=== PATIENT | female | born 1960 | race Hispanic/Latino ===

== ENCOUNTER 2018-05-05 06:02 | Inpatient (IN) | payer BC ==
[2018-05-05] MEDS ORDERED: ePHEDrine 50 mg/ml Inj ONE (07:19)
[2018-05-05] MEDS ORDERED: Propofol 10 mg/ml Inj (20 ML) ONE (07:19)
[2018-05-05] MEDS ORDERED: Rocuronium 10 mg/ml (5 ml) ONE (07:19)
[2018-05-05] MEDS ORDERED: Midazolam 2 MG/2 ML VIAL ONE (07:19)
[2018-05-05] MEDS ORDERED: Succinylcholine Chloride 20 mg/ml Syr (5 ml) IV ONE (07:19)
[2018-05-05] MEDS ORDERED: Phenylephrine 10 mg/ml Inj ONE (07:19)
[2018-05-05] MEDS ORDERED: ceFAZolin IV 1 gm in Dextrose 2 GM/100 ML BAG IVPB ONE (07:33)
[2018-05-05] MEDS ORDERED: Bupivacaine-Epi 0.5%-1:200,000 PF Inj ONE (07:33)
[2018-05-05] MEDS ORDERED: Sodium Chloride 0.9% 20 ML IV ONE (07:33)
[2018-05-05] MEDS ORDERED: Morphine 4 MG/ML VIAL ONE (08:36)
[2018-05-05] MEDS ORDERED: Neostigmine Methylsulfate 3mg/3ml Syringe IV ONE (09:28)
[2018-05-05] MEDS ORDERED: HYDROmorphone 0.5 mg/0.5 ml ISec IVP PRN (10:29)
[2018-05-05] MEDS ORDERED: Oxycodone/Acetaminophen 5/325 mg Tab PO PRN ×2 (11:19)
[2018-05-05] MEDS ORDERED: ceFAZolin IV 1 gm in Dextrose 1 GM/50 ML BAG IVPB SCH (11:30)
--- NOTE | 2018-05-05 12:00 | PCM.OP ---
Operative Report - Operative Report Date of Surgery/Procedure: 05/05/18 Time of Surgery/Procedure: 11:56 Surgeon: Marian Eli MD, Boy Rowan MD Vice President Of Recruiting: Aminata IBARRA Anesthesia/Sedation: Gen with ET tube Pre-Operative Diagnosis: Symotomatic fibroid uterus. Epical uterine prolapse. Chronic pelvic pain Post-Operative Diagnosis: Symotomatic fibroid uterus. Epical uterine prolapse. Chronic pelvic pain. Pelvic adhesive disease Indication for Surgery: Worsening symptomatic fibroid uterus Operative Findings: Bulky fibroid uterus, multiple myomas throughout the uterine wall, dominant myoma on posterior uterine wall, myoma on cervicouterine junction. Extensive adhesions from prior surgical procedures likely uterine artery ambulazion. ovaries and tubes adherenet to other pelvic viscera, however normal appearing. Procedure/Operation Description: Total robotic hysterectomy BSO >250g. Uterosacroligament suspenssion. Lysis of adhesions. Diagnostic cystoscopy. *DESCRIPTION OF OPERATION: . This is a 57 years old female with symptomatic enlarged fibroid uterus, epical uterine prolapse, status post uterine artery embolization in the past. The patient completed an extensive preoperative workup, which included an ultrasound, as well as a Pap smear, chemistry and hematology studies. The patient reported these symptoms and problems as debilitating, and adversely affecting her quality of life. Following a period of failed conservative management, and patient decision was made to proceed with a more invasive approach to address the above noted problems. A decision was finally made to proceed with a total robotic assisted hysterectomy, bilateral salpingoophorectomy, and vaginal vault suspension. A detailed description of this robotic procedure was given to the patient, all indications, risks, benefits and alternative treatments were reviewed, and printed material was also given to the patient regarding robotic surgery. The patient elected to proceed with the proposed procedure fully understanding all the risks and benefits associated with this proposed robotic procedure. After proper consent was obtained from the patient was taken to the operating room, proper patient identification was completed. She was placed in dorsal lithotomy position; general anesthesia was induced without difficulty. Her legs were placed in adjustable Law stirrups. Careful attention was placed to avoid hyper-flexion or hyper-rotation of the lower extremities at the hip and the knee joints. She was prepped and draped appropriately for robotic assisted hysterectomy and colposuspension. Townsend catheter was inserted under sterile conditions. A weighted speculum was placed in the vagina, anterior lip of cervix was grasped with a tenaculum, the cervix was mildly dilated and a V-care uterine manipulator was inserted through the cervix and secured. The weighted speculum and tenaculum were removed from the patient's vagina and attention was turned to the patient's abdomen. Local anesthetic solutions of 0.25% Marcaine with epinephrine were utilized to infiltrate the skin prior to all abdominal skin incisions. A total of 15 mL of 0.25% Marcaine was utilized throughout the procedure. While tenting the abdominal wall up, a Veress needle was inserted at a 45 degree angle. With CO2 insufflation, there was a drop in intraperitoneal pressure confirming correct placement. Insufflation was carried out to approximately 3 liters. A blunt robotic trocar and sleeve was introduced through the camera port in the midline, approximately 3 cm above the umbilicus. Then, using a 30-degree lens robotic scope, initial survey of the patient's abdomen revealed a bulky fibroid uterus, multiple myomas originating in the anterior, posterior and ffundal portion of the uterus. Dense peritoneal and bowel adhesions were noted throughout likely due to the prior uterine artery embolization procedure and possible prior infections. Under direct visualization, 3 additional robotic ports were utilized for this procedure. The first one, approximately 7 cm superior to the superior iliac crest on the RIGHT, a second port was approximately 7 cm superior to the superior iliac crest on the LEFT, and a third one was approximately 8 cm RIGHT lateral of the camera port in the midline. All robotic ports were approximately 8 mm in length. An training program assistant port was inserted approximately 8 cm LEFT lateral of the camera port, and the versastep trocar and sleeve were introduced in the recommended fashion. A Veress and sheath were first introduced through a 1 cm incision, the Veress was removed and a trocar was introduced through the sheath and secured. Again, excellent visualization was noted confirming intraperitoneal placement. The placement of the trocars was all accomplished under careful and meticulous placement under direct visualization. Following the placement of all trocars, the da Maria Ines robotic system was docked in a parallel side docking method without difficulty after the patient was placed in moderate Trendelenburg position and small bowel had been swept away out of the pelvis. The ureter was positively identified. The following instruments were utilized for this procedure: the bipolar cautery device, a monopolar geronimo and finally a ProGrasp. Extensive lysis of peritoneal and bowel adhesions was necessary to complete this hysterectomy. Sharp and blunt dissection was utilized to accomplish this lysis of adhesions. Prior to the start of the hysterectomy, both ureters were visualized along the full course, peristalsis bilaterally. On the patient's right side, the IP and the round ligaments were identified cauterized and transected, the broad ligament was divided all the way down to the utero cervical junction bladder flap was then created by transecting the visceroperitoneum over the bladder reflection. In a similar fashion, the left round ligament, IP ligament and broad ligament were cauterized sealed and transected, taken down to the level of the cervical uterine junction. Uterine vessels on both sides were sealed and transected. The Uterosacral ligaments were sealed and transected. The monopolar geronimo and PK were utilized to complete the colpotomy incision around the care vaginal ring. Excellent hemostasis was noted. The uterus, cervix, ovaries and fallopian tubes were delivered transvaginally through the colpotomy incision and sent to pathology for permanent analysis. The colpotomy incision was closed with 2-0 v LOC in a continuous fashion with excellent hemostasis. The vaginal vault suspension was achieved by suspending the vaginal cuff to the base of the uterosacral ligaments bilaterally. For uterosacral ligament suspension portion of the procedure, the ureters were once again identified to avoid possible compromise or kinking while suspending the vaginal vault. A 2-0 permanent suture material (Lead-Tao) was utilized to suspend the uterosacral ligaments from the base to the vaginal vault cuff incision including both anterior and posterior aspect of the colpotomy incision. Utilizing a 3-0 Monocryl suture, the peritoneum over the colpotomy incision and uterosacral ligaments was re-approximated in a continuous fashion. The pelvis and abdomen were irrigated copiously and cleared of all clots and debris. FloSeal as well as Interceed was applied over the incision sites. Excellent hemostasis was once again noted. All robotic and laparoscopic instruments removed under direct visualization. The robotic arms were undocked, and a da Maria Ines robotic system was wheeled away from the patient's bedside. Both training program assistant and camera ports were closed at the fascial layer utilizing a 0 Vicryl suture material in interrupted fashion. Pneumoperitoneum was reduced and all skin incisions were closed utilizing 4-0 Monocryl in a subcutaneous fashion. Dermabond was applied to all incisions. At the conclusion of this procedure, a diagnostic cystoscopy was completed. The Townsend catheter was removed; the bladder was distended with approximately 350 cc of normal saline. A 17 Nepali 30 cystoscope was introduced through the urethra and a survey of the bladder anatomy was completed. The trigone, and the dome of the bladder appeared normal, both ureteral orifices appeared normal and were efluxing urine freely. The urethra appeared normal. A Townsend catheter was reinserted. Vaginal packing was inserted to be removed the next morning. Patient emerged from general anesthesia without difficulty, and was taken to recovery room in stable condition. Prior to incision the patient received antibiotics, prior to closure sponge lap and needle counts were correct x2. Estimated Blood Loss: 15 Blood Replaced: not Sponge/Instrument Count: count correct times 2 Drains: none Complications: none Specimen: uterus, cervix tubes and ovaries Discharge & Condition: as per criteria
[2018-05-05] MEDS ORDERED: ceFAZolin IV 2 gm in Dextrose 0 GM/0 ML BAG IVPB ONE (16:54)
[2018-05-05] MEDS: ceFAZolin IV 1 gm in Dextrose 1 GM/50 ML BAG IVPB SCH (17:07)
[2018-05-05] MEDS: Simethicone 80 mg Chewtab PO SCH (21:58)
[2018-05-06] MEDS: ceFAZolin IV 1 gm in Dextrose 1 GM/50 ML BAG IVPB SCH ×2 (00:30→09:29)
[2018-05-06 01:07] VITALS: RESP 18
[2018-05-06] MEDS: Simethicone 80 mg Chewtab PO SCH (06:19)
[2018-05-06 08:41] LABS: HEMOGLOBIN 11.8 g/dL (11.0-16.0); MEAN CORPUSCULAR HEMOGLOBIN 26.9 pg (27.0-31.0); MEAN CORPUSCULAR HGB CONC 33.2 g/dL (33.0-37.0); MEAN PLATELET VOLUME 7.4 fL (7.2-11.7); RBC 4.37 Mil/uL (3.80-5.20); WHITE BLOOD COUNT 12.4 K/uL (4.8-10.8)
[2018-05-06 09:01] VITALS: BP 159/78; PULSE 77; TEMP 98; O2SAT 96
[2018-05-06 09:11] LABS: ALB/GLOB RATIO 1.7 (1.0-2.1); ALBUMIN 3.9 g/dL (3.5-5.0); ALT/SGPT 30 U/L (9-52); AST/SGOT 25 U/L (14-36); BLOOD UREA NITROGEN 17 mg/dL (7-17); CALCIUM 9.5 mg/dl (8.6-10.4); GFR AFRICAN-AMERICAN > 60; GFR NON-AFRICAN AMERICAN > 60
--- NOTE | 2018-05-06 12:17 | CP.PCM.PN ---
Subjective - Date & Time of Evaluation Date of Evaluation: 05/06/18 Time of Evaluation: 12:00 - Subjective Subjective: Pt seen and examiend had vomitign 1 episdoe over night, toeratd regular diet, reprot pain controlle, dmabitng, boidng, passing flatus Objective - Vital Signs/Intake and Output Vital Signs (last 24 hours): Temp Pulse Resp BP Pulse Ox 98 F 77 18 159/78 H 96 05/06/18 09:00 05/06/18 09:00 05/06/18 09:00 05/06/18 09:00 05/06/18 09:00 Intake and Output: 05/06/18 05/06/18 06:59 18:59 Intake Total 900 Output Total 350 Balance 550 - Medications Medications: Current Medications Ondansetron HCl (Zofran Inj) 4 mg IVP Q4 PRN PRN Reason: Nausea/Vomiting Last Admin: 05/05/18 23:16 Dose: 4 mg Oxycodone/Acetaminophen (Percocet 5/325 Mg Tab) 2 tab PO Q4H PRN PRN Reason: Pain, moderate (4-7) Stop: 05/08/18 11:20 Oxycodone/Acetaminophen (Percocet 5/325 Mg Tab) 1 tab PO Q4 PRN PRN Reason: Pain, Mild (1-3) Stop: 05/08/18 11:20 Simethicone (Mylicon Chew Tab) 80 mg PO Q8 ZINA Last Admin: 05/06/18 06:19 Dose: 80 mg - Labs Labs: 05/06/18 08:31 05/06/18 08:31 - Constitutional Appears: Well, Non-toxic - Head Exam Head Exam: ATRAUMATIC, NORMAL INSPECTION - Eye Exam Eye Exam: EOMI - ENT Exam ENT Exam: Mucous Membranes Moist - Neck Exam Neck Exam: Full ROM - Respiratory Exam Respiratory Exam: Clear to Ausculation Bilateral, NORMAL BREATHING PATTERN - Cardiovascular Exam Cardiovascular Exam: +S1, +S2 - GI/Abdominal Exam GI & Abdominal Exam: Soft, Normal Bowel Sounds Additional comments: non tender, no guarding, no reboudn tendneres, no rigidty +BSIncsion cd/d/i no vagial bleeding - Extremities Exam Extremities Exam: Full ROM. absent: Calf Tenderness, Joint Swelling, Normal Capillary Refill, Normal Inspection, Pedal Edema, Tenderness - Back Exam Back Exam: NORMAL INSPECTION. absent: CVA tenderness (L), CVA tenderness (R), Full ROM, muscle spasm, paraspinal tenderness, rash noted, tenderness, vertebral tenderness - Neurological Exam Neurological Exam: Alert, Awake, CN II-XII Intact, Normal Gait, Oriented x3 - Psychiatric Exam Psychiatric exam: Normal Affect, Normal Mood - Skin Skin Exam: Abrasion, Dry, Intact, Normal Color Assessment and Plan (1) S/P hysterectomy with oophorectomy Assessment & Plan: 1. dc cardenas 2. regular diet 3. pain namgnet 4. am labs 5. dc today 6. RTO 1 week, precautins givne Status: Acute
--- NOTE | 2018-05-09 12:09 | CP.PCM.DIS ---
Provider - Provider Date of Admission: 05/05/18 11:19 Attending physician: Haley Brunson MD Time Spent in preparation of Discharge (in minutes): 30 Diagnosis - Discharge Diagnosis (1) S/P hysterectomy with oophorectomy Status: Acute Hospital Course - Lab Results Lab Results: Most Recent Lab Values WBC 12.4 K/uL (4.8-10.8) H 05/06/18 08:31 RBC 4.37 Mil/uL (3.80-5.20) 05/06/18 08:31 Hgb 11.8 g/dL (11.0-16.0) 05/06/18 08:31 Hct 35.4 % (34.0-47.0) 05/06/18 08:31 MCV 81.0 fL (81.0-99.0) 05/06/18 08:31 MCH 26.9 pg (27.0-31.0) L 05/06/18 08:31 MCHC 33.2 g/dL (33.0-37.0) 05/06/18 08:31 RDW 14.0 % (11.5-14.5) 05/06/18 08:31 Plt Count 329 K/uL (130-400) 05/06/18 08:31 MPV 7.4 fL (7.2-11.7) 05/06/18 08:31 Sodium 142 mmol/L (132-148) 05/06/18 08:31 Potassium 4.2 mmol/L (3.6-5.2) 05/06/18 08:31 Chloride 101 mmol/L (98-107) 05/06/18 08:31 Carbon Dioxide 29 mmol/L (22-30) 05/06/18 08:31 Anion Gap 16 (10-20) 05/06/18 08:31 BUN 17 mg/dL (7-17) 05/06/18 08:31 Creatinine 0.9 mg/dL (0.7-1.2) 05/06/18 08:31 Est GFR ( Amer) > 60 05/06/18 08:31 Est GFR (Non-Af Amer) > 60 07 08:31 Random Glucose 115 mg/dL (65-105) H 05/06/18 08:31 Calcium 9.5 mg/dl (8.6-10.4) 05/06/18 08:31 Total Bilirubin 0.3 mg/dL (0.2-1.3) 05/06/18 08:31 AST 25 U/L (14-36) 05/06/18 08:31 ALT 30 U/L (9-52) 05/06/18 08:31 Alkaline Phosphatase 86 U/L (38-126) 05/06/18 08:31 Total Protein 6.2 g/dL (6.3-8.3) L 05/06/18 08:31 Albumin 3.9 g/dL (3.5-5.0) 05/06/18 08:31 Globulin 2.3 gm/dL (2.2-3.9) 05/06/18 08:31 Albumin/Globulin Ratio 1.7 (1.0-2.1) 05/06/18 08:31 Blood Type A POSITIVE 05/05/18 07:12 Antibody Screen Negative 05/05/18 07:12 - Date & Time of H&P Date of H&P: 05/06/18 Time of H&P: 09:00 Discharge Exam - Head Exam Head Exam: ATRAUMATIC, NORMAL INSPECTION - Neck Exam Neck exam: Full Rom Discharge Plan - Follow Up Plan Condition: GOOD Disposition: HOME/ ROUTINE Instructions: How to Prevent Surgical Site Infections
== END 2018-05-06 13:30 | disposition home or self-care (01) | DRG 743 ==
LOC: C.SDS 06:02 → C.4M 11:19
PROVIDERS: ADMIT Obstetrics & Gynecology; ATTEND Obstetrics & Gynecology
PROC: 0UT7FZZ Resection of Bilateral Fallopian Tubes, Via Natural or Artificial Opening With Percutaneous Endoscopic Assistance (ICD-10-PCS; 2018-05-05)
PROC: 0DNW4ZZ Release Peritoneum, Percutaneous Endoscopic Approach (ICD-10-PCS; 2018-05-05)
PROC: 0USG4ZZ Reposition Vagina, Percutaneous Endoscopic Approach (ICD-10-PCS; 2018-05-05)
PROC: 8E0W4CZ Robotic Assisted Procedure of Trunk Region, Percutaneous Endoscopic Approach (ICD-10-PCS; 2018-05-05)
PROC: 0TJB8ZZ Inspection of Bladder, Via Natural or Artificial Opening Endoscopic (ICD-10-PCS; 2018-05-05)
PROC: 0UT9FZZ Resection of Uterus, Via Natural or Artificial Opening With Percutaneous Endoscopic Assistance (ICD-10-PCS; principal; 2018-05-05 07:45)
PROC: 0UT2FZZ Resection of Bilateral Ovaries, Via Natural or Artificial Opening With Percutaneous Endoscopic Assistance (ICD-10-PCS; 2018-05-05 07:45)
DX: D25.9 Leiomyoma of uterus, unspecified (principal); K66.0 Peritoneal adhesions (postprocedural) (postinfection); N81.4 Uterovaginal prolapse, unspecified